=== PATIENT | male | born 1985 | race Asian ===

== ENCOUNTER → 2023-07-18 | Emergency (ER) | payer OTHER ==
[~2023-07-18] MED LIST: FLUORESCEIN SODIUM 1 MG/WRAP ONE; MORPHINE 4 MG/ML SYR ONE; NA CHLORIDE 0.9% 1,000 ML ONE; ONDANSETRON 4 MG/2 ML VIAL ONE; Ringers Lactate 2,000 ML IV ONE; TOBRAMYCIN SULF 0.3% OPTH OINT ONE
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
[2023-07-18 20:31] LABS: Absolute Lymphocytes (CBC) 0.6 K/uL (0.7-4.9); Hematocrit 44.1 % (39.6-49.0); Lymphocytes % 7.5 % (15.3-44.8); MCV 91.9 fL (80-100); MPV 8.1 fL (7.6-11.3); Platelets 205 thou/uL (152-406)
[2023-07-18 20:48] LABS: Bilirubin Total 0.4 mg/dL (0.2-1.0); Potassium 3.6 mEq/L (3.5-5.1); Protein, Total 7.9 g/dL (6.4-8.2)
[2023-07-18 22:51] VITALS: BP 119/80; O2SAT 100
== END ==
LOC: ER 19:09
DX: T26.11XA Burn of cornea and conjunctival sac, right eye, initial encounter (principal); T20.29XA Burn of second degree of multiple sites of head, face, and neck, initial encounter; T31.0 Burns involving less than 10% of body surface; H54.61 Unqualified visual loss, right eye, normal vision left eye; T54.3X1A Toxic effect of corrosive alkalis and alkali-like substances, accidental (unintentional), initial encounter
CPT/HCPCS: 85025; 36415; 80053; 96375; 96374; 99285; J2405; J7030; J7120